=== PATIENT | female | born 1990 | race Caucasian/White ===

== ENCOUNTER 2016-07-28 06:11 | Emergency (ER) | payer MEDICAID ==
[~2016-07-28] VITALS: Ht 165.1 cm; Wt 91.0 kg
[2016-07-28 06:15] VITALS: Ht 165.1 cm; Wt 91.0 kg
[2016-07-28] MEDS ORDERED: KETOROLAC 30 MG INJ IV STA (06:35)
[2016-07-28] MEDS ORDERED: ONDANSETRON 4 MG INJ IV STA ×2 (06:35→08:21)
--- NOTE | 2016-07-28 06:42 | ERD ---
ER Documentation Chief Complaint Date/Time DATE: 07/28/16 TIME: 06:38 Chief Complaint ap and nausea that started last night, abcd intact, nad HPI It is a 26-year-old female who presents to the emergency department with right upper quadrant and epigastric pain which started last night. Patient states that the pain is episodic in nature. Patient states she is having difficulty finding of position of comfort. She states that she feels as if she has "bag of rocks" in her epigastric region. Patient states her current pain level is an 8 out of 10. Patient also reports lower back pain. Patient states she is feeling nauseous but denies any vomiting. Patient denies any fevers, chills, dysuria, frequency, urgency. Patient reports chronic stools. Patient states her last menstrual period was 3 months ago. ROS All systems reviewed and are negative except as per history of present illness. Medications Home Meds Active Scripts Ondansetron (Ondansetron Odt) 4 Mg Tab.rapdis, 4 MG PO Q6H Y for NAUSEA AND/OR VOMITING, #20 TAB Prov:BRONSON BRAVO-C 07/28/16 Ibuprofen* (Motrin*) 600 Mg Tab, 600 MG PO Q6, #30 TAB Prov:BRONSON BRAVO-C 07/28/16 Acetaminophen with Codeine (Acetaminophen-Cod #3 Tablet) 1 Each Tablet, 1 TAB PO Q6H, #10 TAB Prov:BRONSON BRAVO-C 07/28/16 Allergies Allergies: Coded Allergies: No Known Allergy (Unverified , 07/28/16) FmHx Family History: No diabetes Physical Exam Vitals Vital Signs Date Time Temp Pulse Resp B/P Pulse Ox O2 Delivery O2 Flow Rate FiO2 07/28/16 06:15 98.3 85 16 146/89 100 Physical Exam GENERAL: Well-developed, well-nourished female. Appears in no acute distress. HEAD: Normocephalic, atraumatic. EYES: Pupils are equally reactive bilaterally. EOMs grossly intact. No conjunctival erythema. ENT: Moist mucous membranes. No uvula deviation. No kissing tonsils. NECK: Supple. No meningismus. Normal range of motion of the neck. LUNG: Clear to auscultation bilaterally. No rhonchi, wheezing, rales or coarse breath sounds. HEART: Regular rate and rhythm. No murmurs, rubs or gallops. ABDOMEN: No scars, ecchymosis or rashes noted. Soft and nondistended. + Tenderness to palpation in RUQ and epigastric region. Positive bowel sounds in all four quadrants. No rebound tenderness, no guarding. (-) McBurney's point tenderness. No CVA tenderness. BACK: No midline tenderness. EXTREMITIES: Equal pulses bilaterally. No peripheral clubbing, cyanosis or edema. No unilateral leg swelling. NEUROLOGIC: Alert and oriented. Moving all four extremities without any difficulty. Normal speech. Steady gait. SKIN: Normal color. Warm and dry. No rashes or lesions. Result Diagram: 07/28/16 0659 07/28/16 0659 Results 24 hrs Laboratory Tests Test 07/28/16 06:59 White Blood Count 12.510^3/ul Red Blood Count 5.0510^6/ul Hemoglobin 14.3g/dl Hematocrit 44.0% Mean Corpuscular Volume 87.1fl Mean Corpuscular Hemoglobin 28.3pg Mean Corpuscular Hemoglobin Concent 32.5g/dl Red Cell Distribution Width 13.1% Platelet Count 36362^3/UL Mean Platelet Volume 9.8fl Neutrophils % 53.8% Lymphocytes % 33.9% Monocytes % 7.3% Eosinophils % 3.8% Basophils % 0.5% Nucleated Red Blood Cells % 0.0/100WBC Neutrophils # 6.710^3/ul Lymphocytes # 4.310^3/ul Monocytes # 0.910^3/ul Eosinophils # 0.510^3/ul Basophils # 0.110^3/ul Nucleated Red Blood Cells # 0.010^3/ul Urine Color LT. YELLOW Urine Clarity CLOUDY Urine pH 6.0 Urine Specific [place] >=1.030 Urine Ketones NEGATIVE Urine Nitrite NEGATIVE Urine Bilirubin NEGATIVE Urine Urobilinogen 0.2 E.U./dL Urine Leukocyte Esterase NEGATIVE Urine Microscopic RBC NONE SEEN/HPF Urine Microscopic WBC 2-5/HPF Urine Epithelial Cells MANY Urine Bacteria MANY Urine Hemoglobin NEGATIVE Urine Glucose NEGATIVE% Urine Total Protein NEGATIVE Sodium Level 142mmol/L Potassium Level 3.9mmol/L Chloride Level 104mmol/L Carbon Dioxide Level 25mmol/L Anion Gap 17 Blood Urea Nitrogen 14mg/dl Creatinine 0.77mg/dl Glucose Level 114mg/dl Calcium Level 9.5mg/dl Total Bilirubin 0.1mg/dl Direct Bilirubin 0.00mg/dl Indirect Bilirubin 0.1mg/dl Aspartate Amino Transf (AST/SGOT) 15IU/L Alanine Aminotransferase (ALT/SGPT) 18IU/L Alkaline Phosphatase 104IU/L Total Protein 8.0g/dl Albumin 4.3g/dl Globulin 3.70g/dl Albumin/Globulin Ratio 1.16 Lipase 55U/L Current Medications Medications (Trade) Dose Ordered Sig/Milagros Route PRN Reason Start Time Stop Time Status Last Admin Dose Admin Ondansetron HCl (Zofran Inj) 4 mg ONCE STAT IV 07/28/16 06:35 07/28/16 06:37 DC 07/28/16 06:46 Ketorolac Tromethamine (Toradol) 30 mg ONCE STAT IV 07/28/16 06:35 07/28/16 06:37 DC 07/28/16 06:46 Morphine Sulfate (morphine) 4 mg ONCE STAT IV 07/28/16 08:15 07/28/16 08:16 DC Ondansetron HCl (Zofran Inj) 4 mg ONCE STAT IV 07/28/16 08:21 07/28/16 08:22 DC Procedures/MDM ED COURSE: The patient was stable throughout ED course. I kept the patient and/or family informed of laboratory and diagnostic imaging results throughout the ED course. EKG: Read by Dr. Mcclelland, attending physician. EKG shows normal sinus rhythm at a rate of 71 bpm. No arrhythmias, acute ST elevations or T wave changes were noted. DIAGNOSTIC IMAGING: Read by radiologist. DIAGNOSTIC IMAGING REPORT Patient: LUCIANO CARTWRIGHT : 1990 Age: 26 Sex: F MR #: [id number] DOS: 07/28/16 0635 Ordering MD: BRONSON BRAVO PA-C Location: [facility] Room/Bed: PROCEDURE: Abdominal ultrasound, limited. CLINICAL INDICATION: Abdominal pain. TECHNIQUE: Multiple real-time images were acquired of the patient's right upper abdomen utilizing a high resolution transducer. COMPARISON: None FINDINGS: The liver demonstrates normal echogenicity and size measuring 15.6 cm. There is no focal mass or intrahepatic biliary ductal dilatation. The portal vein is patent. The gallbladder is not distended. There is an echogenic gallstone within the gallbladder neck. There is no pericholecystic fluid or gallbladder wall thickening. The common bile duct measures 4.8 mm in maximal dimension. The visualized portions of the pancreas are unremarkable. No free fluid is identified. The right kidney is normal size and echogenicity measuring 11.1 x 4.1 x 4.1 cm. There is no focal renal mass or echogenic calculus identified. There is minimal right-sided hydronephrosis. IMPRESSION: Cholelithiasis without ultrasound evidence of cholecystitis. Minimal right side hydronephrosis. .Layton Vasquez MD, MD Date Time Electronically viewed and signed by .Layton Vasquez MD, MD on 07/28/2016 07:35 .T/ CC: BRONSON BRAVO PA-C MEDICATIONS GIVEN: IV fluids, Zofran, Toradol Patient tolerated medication well with no adverse reactions. Patient reported improvement in pain. MEDICAL DECISION MAKING: This is a 26-year-old female who presents with right upper quadrant and epigastric pain x1 day. Vital signs were reviewed. Patient is afebrile. CBC showed no evidence of severe anemia. Patient was noted to have a WBC count of 12.5. CMP showed no evidence of electrolyte abnormalities, severe acidosis, alkalosis, renal failure, or liver disease. Lipase showed no evidence of acute pancreatitis. UA showed no evidence of acute infection or hematuria. Urine test was negative. Gallbladder ultrasound showed Cholelithiasis without ultrasound evidence of cholecystitis. Minimal right side hydronephrosis. EKG was within normal limits. At this time, patient's presentation is most consistent with cholelithiasis. I have a much lower clinical concern for acute coronary syndrome, AAA, mesenteric ischemia, DKA, bowel perforation, bowel obstruction, cholecystitis, choledocholithiasis, ascending cholangitis, pancreatitis, UTI, pyelonephritis, nephrolithiasis, , ectopic . PRESCRIPTIONS: Ibuprofen, Zofran, Tylenol 3 DISCHARGE: At this time, patient is stable for discharge and outpatient management. Patient was provided with a copy of all imaging and blood work obtained today. Advised the patient that she will need to follow-up with a GI specialist and/or general surgeon for further management of her cholelithiasis. Patient will likely need cholecystectomy on an outpatient basis. At this time there is no indication for emergent cholecystectomy. I have instructed the patient to follow-up with his/her primary care physician in 1-2 days. I have instructed the patient to promptly return to the ER at any time for any new or worsening symptoms including increased pain, nausea, vomiting, diarrhea, fever, weakness or LOC. The patient and/or family expressed understanding of and agreement with this plan. All questions were answered. Home care instructions were provided. Departure Diagnosis: Primary Impression: Cholelithiasis Cholelithiasis location: other site Biliary obstruction: with biliary obstruction Qualified Code: K80.81 - Biliary calculus of other site with obstruction Condition: Stable Patient Instructions: Gallstones Referrals: Duane HERNÁNDEZ PHILIP MD BROOKENTHAL,ARIELA DE LA CRUZ,VERÓNICA RODRIGUEZ,MALIA DOBBS MD, M.D. [facility] YOU HAVE RECEIVED A MEDICAL SCREENING EXAM AND THE RESULTS INDICATE THAT YOU DO NOT HAVE A CONDITION THAT REQUIRES URGENT TREATMENT IN THE EMERGENCY DEPARTMENT. FURTHER EVALUATION AND TREATMENT OF YOUR CONDITION CAN WAIT UNTIL YOU ARE SEEN IN YOUR DOCTORS OFFICE WITHIN THE NEXT 1-2 DAYS. IT IS YOUR RESPONSIBILITY TO MAKE AN APPOINTMENT FOR FOLOW-UP CARE. IF YOU HAVE A PRIMARY DOCTOR --you should call your primary doctor and schedule an appointment IF YOU DO NOT HAVE A PRIMARY DOCTOR YOU CAN CALL OUR PHYSICIAN REFERRAL HOTLINE AT IF YOU CAN NOT AFFORD TO SEE A PHYSICIAN YOU CAN CHOSE FROM THE FOLLOWING [facility] [address] [facility] [address] [facility]. [facility] [address] [facility] [address] [facility] [address] [facility] [facility] [facility] [address]. [facility]. [address] [facility] YOU HAVE RECEIVED A MEDICAL SCREENING EXAM AND THE RESULTS INDICATE THAT YOU DO NOT HAVE A CONDITION THAT REQUIRES URGENT TREATMENT IN THE EMERGENCY DEPARTMENT. FURTHER EVALUATION AND TREATMENT OF YOUR CONDITION CAN WAIT UNTIL YOU ARE SEEN IN YOUR DOCTORS OFFICE WITHIN THE NEXT 1-2 DAYS. IT IS YOUR RESPONSIBILITY TO MAKE AN APPOINTMENT FOR FOLOW-UP CARE. IF YOU HAVE A PRIMARY DOCTOR --you should call your primary doctor and schedule and appointment IF YOU DO NOT HAVE A PRIMARY DOCTOR YOU CAN CALL OUR PHYSICIAN REFERRAL HOTLINE AT . IF YOU CAN NOT AFFORD TO SEE A PHYSICIAN YOU CAN CHOSE FROM THE FOLLOWING [facility] INSTITUTIONS: [facility] [address] [place] [address] [facility] [address] [place] [address] [facility] [address] [place] [address] Additional Instructions: Call your primary care doctor TOMORROW for an appointment during the next 1-2 days.See the doctor sooner or return here if your condition worsens before your appointment time. BRONSON BRAVO PA-C Jul 28, 2016 06:42
[2016-07-28 07:01] LABS: ADD SCAN DIFF NO
[2016-07-28 07:04] LABS: BASOPHIL # 0.1 10^3/ul (0.0-0.1); BASOPHILS % 0.5 % (0.0-2.0); EOSINOPHILS # 0.5 10^3/ul (0.0-0.5); EOSINOPHILS % 3.8 % (0.0-7.0); HEMOGLOBIN 14.3 g/dl (12.0-16.0); LYMPHOCYTES # 4.3 10^3/ul (0.8-2.9); LYMPHOCYTES % 33.9 % (15.0-51.0); MEAN CORPUSCULAR HEMOGLOBIN 28.3 pg (29.0-33.0); MEAN CORPUSCULAR HGB CONC 32.5 g/dl (32.0-37.0); MEAN CORPUSCULAR VOLUME 87.1 fl (82.0-101.0); MEAN PLATELET VOLUME 9.8 fl (7.4-10.4); MONOCYTE # 0.9 10^3/ul (0.3-0.9); MONOCYTES % 7.3 % (0.0-11.0); NEUTROPHIL # 6.7 10^3/ul (1.6-7.5); NEUTROPHILS % 53.8 % (39.0-77.0); PLATELET COUNT 383 10^3/UL (140-415); RED BLOOD COUNT 5.05 10^6/ul (4.20-5.40); RED CELL DISTRIBUTION WIDTH 13.1 % (11.5-14.5); WHITE BLOOD COUNT 12.5 10^3/ul (4.8-10.8)
[2016-07-28 07:19] LABS: ADD UMIC YES; URINE BILIRUBIN (Dip) NEGATIVE (NEGATIVE); URINE BLOOD (Dip) NEGATIVE (NEGATIVE); URINE COLOR LT. YELLOW (YELLOW); URINE GLUCOSE (Dip) NEGATIVE (NEGATIVE); URINE KETONES (Dip) NEGATIVE (NEGATIVE); URINE LEUKOCYTE ESTERASE (Dip) NEGATIVE (NEGATIVE); URINE NITRITE (Dip) NEGATIVE (NEGATIVE); URINE TOTAL PROTEIN (Dip) NEGATIVE (NEGATIVE); URINE UROBILINOGEN (Dip) 0.2 E.U./dL (0.1-1.0)
[2016-07-28 07:21] LABS: ALBUMIN 4.3 g/dl (3.3-4.9); POTASSIUM 3.9 mmol/L (3.5-5.1)
[2016-07-28 07:23] LABS: CREATININE 0.77 mg/dl (0.44-1.00)
[2016-07-28 07:24] LABS: ALBUMIN/GLOBULIN RATIO 1.16; BILIRUBIN,INDIRECT 0.1 mg/dl (0-1.1); BILIRUBIN,TOTAL 0.1 mg/dl (0.2-1.3); CALCIUM 9.5 mg/dl (8.4-10.2)
--- NOTE | 2016-07-28 07:35 | RADRPT ---
PROCEDURE: Abdominal ultrasound, limited. CLINICAL INDICATION: Abdominal pain. TECHNIQUE: Multiple real-time images were acquired of the patient's right upper abdomen utilizing a high resolution transducer. COMPARISON: None FINDINGS: The liver demonstrates normal echogenicity and size measuring 15.6 cm. There is no focal mass or in trahepatic biliary ductal dilatation. The portal vein is patent. The gallbladder is not distended. There is an echogenic gallstone within the gallbladder neck. There is no pericholecystic fluid or gallbladder wall thickening. The common bile duct measures 4.8 mm in maximal dimension. The visua lized portions of the pancreas are unremarkable. No free fluid is identified. The right kidney is normal size and echogenicity measuring 11.1 x 4.1 x 4.1 cm. There is no focal r enal mass or echogenic calculus identified. There is minimal right-sided hydronephrosis. IMPRESSION: Cholelithiasis without ultrasound evidence of cholecystitis. Minimal right side hydronephrosis. .Layton Vasquez MD, MD Date Time Electronically viewed and signed by .Layton Vasquez MD, MD on 07/28/2016 07:35 .T/
[2016-07-28 07:53] LABS: BACTERIA,URINE MANY; URINE RBCS NONE SEEN /HPF (0)
[2016-07-28] MEDS ORDERED: morphine 4 MG/ML VIAL IV STA (08:15)
[2016-07-28] MEDS ORDERED: IBUP-1542 PO (08:22)
[2016-07-28] MEDS ORDERED: ONDA4TAB14 PO (08:22)
[2016-07-28] MEDS ORDERED: ACET1TAB40 PO (08:22)
== END 2016-07-28 09:03 | disposition home or self-care (01) ==
LOC: FTE 06:11
DX: K80.71 Calculus of gallbladder and bile duct without cholecystitis with obstruction (principal); R11.0 Nausea; F17.210 Nicotine dependence, cigarettes, uncomplicated
CPT/HCPCS: 76705; 80053; 81001; 81003; 83690; 85025; 93005; J1885; J2270; J2405; 36415; 96374; 96375; 96376

== ENCOUNTER 2018-02-18 23:52 | Emergency (ER) | END 2018-02-19 03:08 | disposition home or self-care (01) ==